=== PATIENT | male | born 1960 | race Caucasian/White ===

== ENCOUNTER → 2017-01-25 | Outpatient (REF) ==
[~2017-01-25] MED LIST: DYAZIDE 25 MG-31 CAP PO; FERROUS SU325 MG/TAB PO; FOLIC ACID 40400 MCG PO; LORTAB 7.5/5001 TAB PO; MOBIC 7.5MG7.5 MG PO; MOBIC15 MG PO; NORCO 325 MG-51 TAB PO; TRIAMTERENE/HCT1 TAB PO; ULTRAM 50MG TAB50 MG PO; VITAMIN C BUFF500 MG PO
[2017-01-25 18:53] LABS: PSA-TOTAL 3.04 ng/mL (0-4); THYROID STIMULATING HORMONE 1.7 uIU/mL (0.465-4.680)
== END ==
LOC: ZLAB.WCH 18:00
PROVIDERS: Internal Medicine
DX: Z01.89 Encounter for other specified special examinations (principal)
CPT/HCPCS: G0103

== ENCOUNTER → 2018-12-18 | Outpatient (CLI) | payer BC | LOC: COL.RAD 13:52 | DX: N50.819 Testicular pain, unspecified (principal); R10.30 Lower abdominal pain, unspecified ==